=== PATIENT | female | born 1995 | race Caucasian/White ===

== ENCOUNTER 2022-09-15 17:14 | Outpatient (CLI) | payer BC, SELFPAY | END 2022-09-15 17:15 | disposition home or self-care (01) | PROVIDERS: PCP Family Medicine; Visit Provider Nurse Practitioner Family | DX: R30.0 Dysuria (principal); N89.8 Other specified noninflammatory disorders of vagina | CPT/HCPCS: 87086 ==

== ENCOUNTER 2022-10-27 10:12 | Outpatient (CLI) | payer BC, SELFPAY | END 2022-10-27 10:13 | disposition home or self-care (01) | PROVIDERS: PCP Family Medicine; Visit Provider Family Medicine | DX: Z00.00 Encounter for general adult medical examination without abnormal findings (principal); Z13.6 Encounter for screening for cardiovascular disorders | CPT/HCPCS: 80053; 80061 ==

== ENCOUNTER 2023-02-26 14:25 | Outpatient (CLI) | payer BC, SELFPAY ==
--- NOTE | 2023-02-26 14:45 | MR_ITS ---
[address] [address] Phone:?[phone] Fax:?[phone] Referring Physician Information: Betito Cole M.D. [id number] [facility] [address] Phone:?[phone] Fax:?[phone] Patient:Akash Jsoeph D.O.B:?1995 Sex:?Female Phone:? [facility] MRN:?[id number] Exam Date:?02/26/2023 EXAM: MRI OF THE LEFT KNEE CLINICAL INFORMATION: The patient is a 27-year-old with left knee pain. Evaluate for internal derangement. Evaluate for meniscal tear. PRIOR SURGERY: None reported. COMPARISON STUDIES: Comparison is made to prior radiographs dated 01/12/2023. TECHNICAL INFORMATION: Imaging was performed on a high-field, 1.5 Anahi MR scanner. Axial proton-density and fat-suppressed T2 imaging of the left knee was performed in addition to coronal proton-density and coronal STIR imaging. Sagittal proton-density and fat-suppressed proton-density imaging was also produced. FINDINGS: Articular/Extraarticular collections: Effusion: Mild. Popliteal cyst: Small, seen on sagittal series 6 image 11. Loose bodies: No well-defined intra-articular loose bodies are present. Subcutaneous and extraarticular soft tissues: Within normal limits. Osseous structures: No evidence for marrow edema or cortical injury. No evidence for fracture or stress injury. No evidence for destructive bony lesion. Ligamentous structures: ACL: Intact and normal in appearance. PCL: Intact and normal in appearance. MCL: Intact and normal in appearance. LCL: Intact and normal in appearance. Posterolateral corner: Intact and normal in appearance. Posteromedial corner: No posteromedial corner soft tissue injury. Semimembranosus and pes anserine tendons demonstrate no tendinopathy or associated bursitis. Extensor mechanism/Patellar retinacular structures: Patellar tendon: Intact, without tendinopathy. Quadriceps tendon: Intact, without tendinopathy. Retinacula: The medial and lateral retinacula are intact. The medial patellofemoral ligament is intact. Medial compartment: Medial meniscus: No evidence for medial meniscal tearing can be seen. There is no evidence for parameniscal cyst formation. No meniscocapsular separation injury is identified. Medial femoral condyle: No chondromalacia, chondral defect, or osteochondral abnormality. Medial tibial plateau: No chondromalacia, chondral defect, or osteochondral abnormality. Lateral compartment: Lateral meniscus: There is a linear area of suspected tearing involving the far posterior aspect of the lateral meniscus at the meniscotibial attachment seen on sagittal series 6 image 18 and on coronal series 7 image 22. This area of suspected tearing measures 5 mm in greatest dimension. No other lateral meniscal injuries are present. No parameniscal cyst formation is seen. No definite evidence for meniscocapsular separation injury is identified. Lateral femoral condyle: No chondromalacia, chondral defect, or osteochondral abnormality. Lateral tibial plateau: No chondromalacia, chondral defect, or osteochondral abnormality. Patellofemoral compartment: Patella: No chondromalacia, chondral defect, or osteochondral abnormality. Trochlea: No chondromalacia, chondral defect, or osteochondral abnormality. Neurovascular: No definite neurovascular abnormalities are seen. CONCLUSION: 1. No definite evidence for well-defined medial meniscal tearing can be seen. 2. Suspected linear tearing involving the far posterior aspect of the lateral meniscus at the meniscotibial attachment as described above. Clinical correlation is required. 3. No chondral injuries along the articular surfaces are present. 4. No acute bony abnormalities are seen. 5. Mild knee joint effusion and small popliteal cyst. 6. The cruciate and collateral ligaments appear intact. [facility] Electronically signed on 02/26/2023 5:20:00 PM by Benson Garrett M.D.
== END 2023-02-26 14:26 | disposition home or self-care (01) ==
PROVIDERS: PCP Family Medicine; Visit Provider Orthopaedic Surgery
DX: M25.562 Pain in left knee (principal); M25.462 Effusion, left knee; M71.22 Synovial cyst of popliteal space [Baker], left knee
CPT/HCPCS: 73721

== ENCOUNTER 2023-08-12 13:26 | Outpatient (CLI) | payer BC, SELFPAY | END 2023-08-12 13:27 | disposition home or self-care (01) | LOC: FRMREF 13:27 | PROVIDERS: PCP Family Medicine; Visit Provider Family Medicine | DX: F98.8 Other specified behavioral and emotional disorders with onset usually occurring in childhood and adolescence (principal); Z79.899 Other long term (current) drug therapy | CPT/HCPCS: 80306 ==

== ENCOUNTER 2023-10-09 10:47 | Outpatient (CLI) | payer BC, SELFPAY ==
[2023-10-14 14:48] LABS: HSV 1 Subtype by PCR Not Detected; HSV 2 Subtype by PCR Not Detected; Herpes Simplex Subtype Source Tissue
== END 2023-10-09 10:48 | disposition home or self-care (01) ==
LOC: LKVREF 10:47
PROVIDERS: PCP Family Medicine; Visit Provider Nurse Practitioner Family
DX: N89.8 Other specified noninflammatory disorders of vagina (principal)
CPT/HCPCS: 87529

== ENCOUNTER 2023-12-23 14:15 | Outpatient (RCR) | payer BC, SELFPAY ==
--- NOTE | 2023-10-21 18:08 | PT.OPDN ---
PT [facility] Daily Note [facility] Daily Note Start: 07/21/23 11:21 Freq: Status: Active Protocol: Document 10/21/23 16:45 BMS (Rec: 10/21/23 16:47 BMS [id number]) E-signed By Eve Jean Baptiste, PT PT OP Daily Progress Note Visit Information Note Type Daily Note,Recert/Progress Note Visit Number [id number] Insurance Authorized Visits 40 Insurance Information Recert Due Date 01/18/24 Medical Diagnosis cervicalgia M54.2 dorsalgia M54.9 other chronic pain G89.29 Treating Diagnosis cervicalgia M54.2 dorsalgia M54.9 other chronic pain G89.29 Referring MD Tevin Lan MD Subjective Subjective feeling so much better now, had influenza B really bad had ALL the symptoms so did kid and dad. so havent done any workouts. so sorry had to cancel a couple of times Pain Comments 6/10 low back would stop from carrying kid, work lifting heavy dog, neck now more 7/10, could be bc tooth dentist cancelled on me. not full CHURCH right now but feels like it could. Precautions Treatment Precautions/Contraindications anxiety/depression working on finding medication balance Home Exercise Home Exercise Comments Access Code: [email or web address] URL: [email or web address] Date: 09/30/2023 Prepared by: Eve Jean Baptiste Exercises - Supine Active Straight Leg Raise - 1-3 x daily - 5-7 x weekly - 1-3 sets - 10-20 reps - Clamshell - 1-3 x daily - 5 -7 x weekly - 1-3 sets - 10-20 reps - Sidelying Hip Abduction - 1 -3 x daily - 5-7 x weekly - 1- 3 sets - 10-20 reps - Prone Hip Extension with Bent Knee - One Pillow - 1-3 x daily - 5-7 x weekly - 1-3 sets - 10-20 reps - Bird Dog - 1-3 x daily - 5- 7 x weekly - 1-3 sets - 10-20 reps continue with stretches that feel good like open book Objective Other/Pertinent Objective trunk flex fingertips to floor , B SB mild loss and ext WNL but with pinching pain lumbar from 09/29 visit prior to illness trunk flex lacking 6 from floor with significant kyphosis but no unilateral rib hump, L=R lateral SB with posterior deviation into hyperlordosis, SLS L more impaired than R MMT seated hip flex R=4-/5, L = 3+/5. abduction adn adduction in seated position B 5/5. DF B 4/5, PF B 4/5. quad R = 5/5, L = 4/5. -skin lesion ~C5-7 on posterior neck with redness and flatter surface following her biopsy [ End ] Patient Instructed in Risks/Benefits Yes: Yes+ Therapeutic Exercise Therapeutic Exercise Minutes (minutes) 38 Therapeutic Exercise: To Restore -recumbent bike LE 5 min 4.0 Functional Status resist, UBE 3.0 - quadruped alt UE, alt LE, then birddog with cueing to attain and maintain neutral spine as well as not drop hip with dynamic limb, which increases torque through back and suggestions lack of stabilization with dynamic limb as is necessary for lifting and carrying at home and work, and even just walking. -foam roll pec stretch in hooklying 2 x 45 sec x 3 positions w longitudinal roller, then perpindicular foam roller (relative to spine ) for self MFR - counter pushups maintaining neutral spine with imagery of plate of glass above and below spine x 15 - wall squats yellow physioball btwn wall and back w neutral spine x 15 Treatment Minutes Timed Code Treatment Minutes 38 Total Treatment Time 38 Billing Units Therapeutic Exercise Units 3 Assessment/Impression Assessment/Impression - quadruped alt UE, alt LE, then birddog with cueing to attain and maintain neutral spine as well as not drop hip with dynamic limb, which increases torque through back and suggestions lack of stabilization with dynamic limb as is necessary for lifting and carrying at home and work, and even just walking. patient does have pain with heavy lifting, with extension and R SB tasks. appropriate to continue to work on skilled physical therapy cueing and instruction in ex, therapeutic activities , body mechanics and endurance tasks to decrease risk or repeat injury at work or home. Plan of Care Physical Therapy Goals 1) Patient will demonstrate I HEP and self care/home mgmt techniques for pain management, core stability and ROM. 2 ) Pt report pain <2-3/10 with activity and provocative positions ie ascend/descend steps, lifting dogs for grooming, sleeping without waking from pain, and carrying for child etc. 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 2) Pt report pain not interrupting sleep more than 2x/ week without use of medication. 3) Pt will demo 500' ambulation without limp and with best mechanics and balance to decrease risk of fall with community ambulation for things such as grocery shopping, participation in fitness activities. 4) Pt will demo ability to return to walking, yoga and functional strengthening for management of RA, HTN and osteopenia to maximize independence and longevity. Daily Plan of Care Continue per POC Daily Plan of Care Comments Plan to consolidate HEP if able. Continue to address suboccipital tightness. 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 Rehabilitation Potential good - asks appropriate questions, has been diligent with home programs until recent illness Continued Plan of Care and Interventions TE, neuro, estim, TA, manual, poss traction Provider Signature Shows Agreement With POC & Medical Necessity Physician Comment/Change Comment or Changes Physician NPI Number # Discharge Note Initial Pain Level Symptoms: CHURCH 1-2x/ week regular headache rated 6-7/10 , migraines 1-2x/ month. neck pain 6-7/10, mid back 8/10, low back 8/10. L knee 5-7/10, it pops out of place and have to use hands to pop back in. saw ortho am getting a new order for knee. Was going to start PT a few months ago then my mom in Apr and I kind of shut down. - out of breath updown stairs. was sick, still getting over that. - pain worse with lifting, standing long time, sitting 30 min., had to stop grooming the larger dogs, wont take anything over ~ 60# now bc back hurts so bad when I have to lift -numb/tingly into legs and arms no trigger, comes and goes, shaking it out helps, maybe circulation per patient? and groom them. pain with lifting and carrying my 3 yo. vision - need to go to eye doctor has been years, some dizziness with getting up to fast or if not eating - has tried: uses ibuprofen 2- 3x/ week, helps some. heat and ice both help. 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
== END 2024-03-24 11:41 | disposition home or self-care (01) ==
PROVIDERS: PCP Family Medicine; Visit Provider Family Medicine
DX: M54.2 Cervicalgia (principal); M54.9 Dorsalgia, unspecified; Z51.89 Encounter for other specified aftercare; G89.29 Other chronic pain
CPT/HCPCS: 97110; 97140; 97162; 97530

== ENCOUNTER 2024-07-21 13:59 | Outpatient (CLI) | payer BC, SELFPAY ==
[2024-07-21 14:34] LABS: Strep A DNA Probe* DETECTED (Not Detectd)
== END 2024-07-21 14:00 | disposition home or self-care (01) ==
PROVIDERS: PCP Family Medicine; Visit Provider Nurse Practitioner Family
DX: J02.9 Acute pharyngitis, unspecified (principal)
CPT/HCPCS: 87651